=== PATIENT | female | born 1995 | race Hispanic/Latino ===

== ENCOUNTER 2021-08-06 00:53 | Emergency (ER) | payer SELFPAY ==
[2021-08-06 01:19] VITALS: BP 101/58
[2021-08-06 02:08] LABS: Bilirubin,Urine NEG (Negative); Blood,Urine NEG (Negative); Color,Urine Amber (Yellow); Hyaline Casts,Urine 1 /LPF; Mucus,Urine 3+ /HPF
[2021-08-06 02:10] LABS: HCG Qualitative,Urine Negative (Negative)
--- NOTE | 2021-08-06 02:34 | XRay Report ---
PA CHEST AND RIGHT RIB DETAIL 3 VIEWS INDICATION / CLINICAL INFORMATION: Fall with rib pain and bruising. COMPARISON: None available. FINDINGS: The heart size and pulmonary vasculature are normal. The lungs are clear. There is no evidence of pne umothorax or pleural effusion. I see no evidence of an acute rib fracture or other significant abnormality. Signer Name: Hammad Melgar MD Signed: 08/06/2021 2:30 AM Workstation Name: [id number]
--- NOTE | 2021-08-06 04:37 | Emergency Department Report ---
ED Fall HPI - General Chief Complaint: Chest Pain Stated Complaint: ABDOMINAL PAIN Time Seen by Provider: 08/06/21 01:13 Source: patient Mode of arrival: Ambulatory - History of Present Illness Initial Comments: 36-year-old female [facility] emerge department complaining of a accidental ground- level fall about 9 to 10 days ago landing on her right side resulting in pain to her rib area and flank which she can has continued discomfort since the onset she is initially seen at another hospital and was found that inconclusive x-rays but the pain has continued Nakesha but no hemoptysis hematemesis hematochezia no fevers, chills, sweats. No nausea, no vomiting, no headache, no neck pain. MD Complaint: fall -: Gradual Place Fall Occurred: home Loss of Consciousness: none Prolonged Down Time?: no Severity: mild, moderate Quality: dull Context: tripped/slipped Associated Symptoms: denies: neck pain, numbness, shortness of breath, abdominal pain, lightheaded, vertigo - Related Data Previous Rx's Medication Instructions Recorded Last Taken Type traMADoL [Ultram] 50 mg PO Q6HR PRN #20 tablet 08/06/21 Unknown Rx ED Review of Systems ROS: Stated complaint: ABDOMINAL PAIN Other details as noted in HPI Comment: All other systems reviewed and negative ED Past Medical Hx - Medications Home Medications: Home Medications Medication Instructions Recorded Confirmed Last Taken Type traMADoL [Ultram] 50 mg PO Q6HR PRN #20 tablet 08/06/21 Unknown Rx ED Physical Exam - General Limitations: No Limitations General appearance: alert, in no apparent distress - Head Head exam: Present: atraumatic, normocephalic - Eye Eye exam: Present: normal appearance - ENT ENT exam: Present: mucous membranes moist - Neck Neck exam: Present: normal inspection - Respiratory Respiratory exam: Present: normal lung sounds bilaterally, chest wall tenderness (Mild left rib cage border with obvious healing bruising no subcutaneous emphysema is noted. No step-offs. Normal breath sounds). Absent: respiratory distress - Cardiovascular Cardiovascular Exam: Present: regular rate (No tachycardia on examination heart rate is below 90), normal rhythm. Absent: systolic murmur, diastolic murmur, rubs, gallop - GI/Abdominal GI/Abdominal exam: Present: soft, normal bowel sounds - Extremities Exam Extremities exam: Present: normal inspection - Back Exam Back exam: Present: normal inspection - Neurological Exam Neurological exam: Present: alert, oriented X3 - Psychiatric Psychiatric exam: Present: normal affect, normal mood - Skin Skin exam: Present: warm, dry, intact, normal color. Absent: rash ED Course Vital Signs 08/06/21 01:09 Temperature 98.1 F Pulse Rate 122 H Respiratory 20 Rate Blood Pressure 101/58 [Right] O2 Sat by Pulse 100 Oximetry ED Medical Decision Making - Radiology Data Radiology results: report reviewed [facility] [address] [place] [address] XRay Report Signed Patient: INGRIS DE LA CRUZ MR#: [id number] : 1995 Acct:[id number] Age/Sex: 26 / F ADM Date: 08/06/21 Loc: ED Attending Dr: Ordering Physician: ENRIKE TADEO Date of Service: 08/06/21 Procedure(s): XR ribs UNI w PA Chest 3+V RT Accession Number(s): [id number] cc: ENRIKE TADEO Fluoro Time In Minutes: PA CHEST AND RIGHT RIB DETAIL 3 VIEWS INDICATION / CLINICAL INFORMATION: Fall with rib pain and bruising. COMPARISON: None available. FINDINGS: The heart size and pulmonary vasculature are normal. The lungs are clear. There is no evidence of pneumothorax or pleural effusion. I see no evidence of an acute rib fracture or other significant abnormality. Signer Name: Hammad Melgar MD Signed: 08/06/2021 2:30 AM Workstation Name: [id number] Transcribed By: RT Dictated By: Hammad Melgar MD Electronically Authenticated By: Hammad Melgar MD Signed Date/Time: 08/06/21229 DD/ 7 TD/TT: Print Cancel Critical care attestation.: If time is entered above; I have spent that time in minutes in the direct care of this critically ill patient, excluding procedure time. ED Disposition Clinical Impression: Contusion of rib on right side Disposition: HOME / SELF CARE / HOMELESS Is pt being admited?: No Does the pt Need Aspirin: No Condition: Stable Instructions: How to Use Cold Therapy, Contusion, Rib Contusion Prescriptions: traMADoL [Ultram] 50 mg PO Q6HR PRN #20 tablet PRN Reason: Pain Referrals: PRIMARY CARE, [Primary Care Provider] - 3-5 Days [facility] [Provider Group] - 3-5 Days
== END 2021-08-06 05:09 | disposition home or self-care (01) ==
LOC: ED 00:53
DX: S20.211A Contusion of right front wall of thorax, initial encounter (principal); W01.0XXA Fall on same level from slipping, tripping and stumbling without subsequent striking against object, initial encounter; Y93.89 Activity, other specified; Y92.89 Other specified places as the place of occurrence of the external cause; Y99.8 Other external cause status
CPT/HCPCS: 81001; 81025; 99283